=== PATIENT | female | born 1980 | race Two or more races ===

== ENCOUNTER 2025-06-07 10:19 | Emergency (ER) | payer OTHER ==
[~2025-06-07] VITALS: Ht 154.9 cm; Wt 81.6 kg
[2025-06-07 10:34] VITALS: BP 125/69
[2025-06-07] MEDS ORDERED: EMPA10TA PO (10:45)
[2025-06-07] MEDS ORDERED: [UNRECOGNIZED DRUG - CODE] PO (10:45)
[2025-06-07] MEDS ORDERED: PROP10TA10 PO (10:45)
[2025-06-07] MEDS ORDERED: METH-377 PO (10:45)
[2025-06-07 11:19] LABS: PLATELET COUNT (AUTO) 307 K/uL (179-408); RED BLOOD CELL COUNT(AUTO) 6.17 MIL/uL (3.63-4.92); RED CELL DISTRIBUTION WIDTH 14.3 % (12.3-17.7); WHITE BLOOD COUNT (AUTO) 12.6 K/uL (3.8-11.8)
[2025-06-07] MEDS ORDERED: ONDANSETRON ODT 4 MG TAB.RAPDIS ONE (11:19)
[2025-06-07] MEDS: IV NORMAL SALINE 1000 ML BAG IV ONE (11:24)
[2025-06-07] MEDS: ONDANSETRON ODT 4 MG TAB.RAPDIS SL ONE (11:24)
[2025-06-07] MEDS: ONDANSETRON 4 MG/2 ML VIAL IV ONE (11:25)
[2025-06-07 11:28] LABS: *BILIRUBIN,URIN NEGATIVE (NEGATIVE); *CLARITY,URINE CLEAR (CLEAR); *COLOR,URINE YELLOW (YELLOW); *KETONES,URINE NEGATIVE (NEGATIVE); *PROTEIN,URINE NEGATIVE (NEGATIVE); *UROBILINOGEN,URINE 0.2 E.U./dl (NORMAL); LEUKOCYTE ESTERASE ,URINE NEGATIVE (NEGATIVE); NITRITE, URINE NEGATIVE (NEGATIVE)
[2025-06-07 11:29] LABS: CREATININE 0.6 mg/dL (0.6-1.3); SODIUM SERUM 139 mmol/L (136-145); UREA NITROGEN, BLOOD 20 mg/dL (7-18)
[2025-06-07 11:32] LABS: *BLOOD, URINE TRACE (NEGATIVE); UGLUCOSE 2+ (NEGATIVE)
[2025-06-07 11:34] LABS: *URINE HCG, QUAL NEGATIVE (NEGATIVE)
[2025-06-07 11:39] LABS: SQUAMOUS EPITHELIAL CELL,UR MODERATE /HPF (NONE SEEN)
[2025-06-07 13:00] VITALS: BP 125/69; O2SAT 96
== END 2025-06-07 13:00 | disposition home or self-care (01) ==
LOC: ER 10:19
DX: R53.1 Weakness (principal); E05.90 Thyrotoxicosis, unspecified without thyrotoxic crisis or storm; E11.9 Type 2 diabetes mellitus without complications; Z79.84 Long term (current) use of oral hypoglycemic drugs
CPT/HCPCS: 99285; 71045; 80048; 81001; 84703; 84439; 83735; 84100; 84443; 85025; 84484; 36415; 93005; J7040; A4606; A4663; Q0162